=== PATIENT | male | born 1970 | race Caucasian/White ===

== ENCOUNTER → 2020-05-12 | Day surgery (SDC) | payer OTHER ==
[~2020-05-12] MED LIST: ALLOPURINOL 30300 M1 PO; BUPROPION HCL150 M1 PO; CARAFATE 1 GM TA1 G1 PO; FENOFIBRATE145 M1 PO; IBUPROFEN 800800 M1 PO; NEURONTIN 300M300 M2 PO; PERCOCET 5-3251 EACH PO; PRINIVIL20 MG PO
[2020-05-12 06:41] LABS: HEMATOCRIT 42.8 % (42.0-52.0); HEMOGLOBIN 14.4 gm/dL (14.0-18.0)
--- NOTE | 2020-05-12 16:01 | EKG ---
[place] [address] ELECTROCARDIOGRAM REPORT Name: ANA FRIDE Room: [facility]#: [id number] Admission: 05/12/20 Attend Phys: Adis Lucia DPM Discharge: Date of : 70 Date of Service: 05/12/20 0634 Report #: [id number] THIS REPORT FOR: //name// [facility] Test Date: 2020-05-12 Test Time: 06:34:32 Pat Name: ANA FRIED Department: Room: Gender: M Food Aide: JU VAZQUEZ : 1970 Requested By: Adis Lucia Order Number: [id number] Lenore MD: John Hebert Measurements Intervals [place] Rate: 69 P: 22 VA: 154 QRS: 1 QRSD: 115 T: 4 QT: 411 QTc: 441 Interpretive Statements Sinus rhythm Incomplete right bundle branch block No previous ECG available for comparison Electronically Signed On 05-12-2020 16:01:16 STUDENT SERVICES ADVISOR by John Hebert [email or web address] <ELECTRONICALLY SIGNED> By: John Hebert MD, [facility] 05/12/20 1601 0634 0634 John Hebert MD, [facility] /EPI
--- NOTE | 2020-05-13 09:38 | OP ---
[address] [address] OPERATIVE REPORT Name: ANA FRIED Room: [facility]#: [id number] Admission: 05/12/20 Attend Phys: Adis Lucia DPM Discharge: Date of : 70 Report #: [id number] THIS REPORT FOR: cc: FAM - Family physician unknown FAM - Family physician unknown ~ Adis Lucia DPM DATE OF SERVICE: 05/12/2020 PROCEDURE: 1. Debridement of L Achilles non healing wound 2. Preparation of wound bed L LE 3. Application of graft LLE PREOPERATIVE DIAGNOSIS: Nonhealing dehiscence of a surgical site, left Achilles tendon. POSTOPERATIVE DIAGNOSIS: Nonhealing dehiscence of a surgical site, left Achilles tendon performed by. SURGEON: Dr. Adis Lucia. PRODUCTION TOOL ENGINEER: Dr. Usman Stone. FINDINGS: Nonhealing dehiscence surgical site on the posterior aspect of the left Achilles tendon. Pre-debridement measurements were 1.3 x 3.2 x 0.2 cm. Post-debridement measurements were 2.5 x 4 x 0.2 cm. SPECIMENS REMOVED: Soft tissue wound culture sent for micro. ESTIMATED BLOOD LOSS: Approximately 5 mL. COMPLICATIONS: None. HEMOSTASIS: No tourniquet was inflated. INJECTABLES: 20 mL of 1% lidocaine plain and 0.5% Marcaine plain in a 1:1 mixture. MATERIALS USED: The Misonix ultrasonic debrider and Stravix graft 3 x 6 cm. ANESTHESIA PROVIDER: [facility]. DISPOSITION: The patient tolerated the procedure well. The patient left the operating room. Neurovascular status intact noted by capillary refill time less than 3 seconds at operative site. The patient was transferred to recovery [place] [address] OPERATIVE REPORT Name: ANA FRIED Room: [facility]#: [id number] Admission: 05/12/20 Attend Phys: Adis Lucia DPM Discharge: Date of : 70 Report #: [id number] OPERATIVE PROCEDURE IN DETAIL: Under light sedation, the patient was transferred from the preoperative holding area to the operating room table and MAC anesthesia was provided. The patient was then placed in the prone position. At this time, a block in the area of the left Achilles tendon was performed using 10 mL of 1% lidocaine plain and 0.5% Marcaine plain in a 1:1 mix. At this time, the left lower extremity was prepped and draped in normal sterile fashion. Tourniquet was applied prior to this, but never inflated. Next, attention was directed toward the posterior aspect of the left Achilles tendon where a nonhealing dehiscence site was noted. This dehiscence site had been there for over a year. At this time, the [employer] ultrasonic debrider tool was obtained and all nonviable soft tissue was debrided from the site. Once the nonviable tissue was debrided from the dorsal aspect of the site, a hemostat and 15 blade were used to free up the tendon slightly. Once this was performed, the area was again debrided with the ultrasonic debrider tool and a 15 blade to prepare the wound bed for graft application. Once healthy tissue was seen, the area was irrigated with copious amounts of normal saline solution. At this time, the Stravix 3 x 6 cm graft was obtained and placed on the posterior aspect of the Achilles where the open wound was noted. The graft was secured using 3-0 Monocryl suture. Next, the area was dressed with Adaptic, followed by DSD, followed by Kerlix, followed by cast padding, followed by Samuel wrap. Prior to applying the dressings, an additional 10 mL of local anesthetic were injected for postop pain. The patient tolerated the procedure well. The patient left the operating room. Neurovascular status intact noted by capillary refill time less than 3 seconds to the operative site. The patient was transferred to recovery room in stable condition. The patient will follow up with me in clinic next week. The patient is to wear his Cam walker at all times postop. The patient was given 3 days of Percocet for any postoperative pain. The patient was instructed to keep the area clean, dry and intact. <ELECTRONICALLY SIGNED> By: Adis Lucia DPM 05/13/20 0938 0920Adis Lucia DPM /nt
== END | disposition home or self-care (01) ==
LOC: M.SUR 05:31
PROVIDERS: ATTEND Podiatrist
DX: T81.31XA Disruption of external operation (surgical) wound, not elsewhere classified, initial encounter (principal); I10 Essential (primary) hypertension; M10.9 Gout, unspecified; F41.9 Anxiety disorder, unspecified; K21.9 Gastro-esophageal reflux disease without esophagitis; Z79.899 Other long term (current) drug therapy; Z98.890 Other specified postprocedural states; Z96.652 Presence of left artificial knee joint; Y83.8 Other surgical procedures as the cause of abnormal reaction of the patient, or of later complication, without mention of misadventure at the time of the procedure

== ENCOUNTER → 2020-10-20 | Day surgery (SDC) | payer OTHER ==
[~2020-10-20] MED LIST changes: +PERCOCET 7.5-31 EAC1 PO
--- NOTE | ~2020-10-20 | OP ---
[address] [address] OPERATIVE REPORT Name: ANA FRIED Room: [facility]#: [id number] Admission: 10/20/20 Attend Phys: Adis Lucia DPM Discharge: Date of : 70 Report #: [id number] THIS REPORT FOR: cc: ANTONIO - No family physician/PCP ANTONIO - No family physician/PCP ~ DOC #: [id number] Adis Lucia DPM DATE OF SURGERY: 10/20/2020 OPERATIVE PROCEDURE: 1. Debridement of left Achilles tendon wound. 2. Preparation of wound bed. 3. Harvesting of split thickness skin graft from left lower extremity. 4. Application of split thickness skin graft left Achilles tendon wound. PREOPERATIVE DIAGNOSIS: Nonhealing surgical wound, left lower extremity. POSTOPERATIVE DIAGNOSIS: Nonhealing surgical wound, left lower extremity. SURGEON: Aids Lucia DPM RECOVERER: None. FINDINGS: Nonhealing surgical wound on the left Achilles tendon area. Preoperative debridement measurements were 5 cm x 2 cm x 0.1 cm. Post-debridement measurements were 5.2 cm x 2.2 cm x 0.2 cm. SPECIMENS REMOVED: None. ESTIMATED BLOOD LOSS: 5 mL COMPLICATIONS: None. HEMOSTASIS: Thigh tourniquet at 350 mmHg for 30 minutes. INJECTABLES USED: 30 mL of 1% lidocaine plain and 0.5% Marcaine plain in a 1:1 mixture given at the debridement site and the harvesting site. ANESTHESIA TYPE: General. TIMEOUT PERFORMED: Yes. DISPOSITION: The patient tolerated the procedure well. The patient left the operating room. Neurovascular status intact noted by capillary refill time less than three seconds to the operative site. [place] [address] OPERATIVE REPORT Name: ANA FRIED Room: [facility]#: [id number] Admission: 10/20/20 Attend Phys: Adis Lucia DPM Discharge: Date of : 70 Report #: [id number] recovery room in stable condition. DESCRIPTION OF PROCEDURE: Under light sedation, the patient was transferred to the preoperative holding area to the operating room table and was given a general anesthesia. At this time, the patient was planned and was placed in the prone position. Next, the left lower extremity was prepped and draped in a normal sterile fashion. At this time, all intraoperative parties agreed that the proper procedure was going to be debridement of left Achilles tendon wound with preparation of wound bed and harvesting of a split thickness skin graft from the ipsilateral calf and application of this graft to the left Achilles area. Next, the left lower extremity was prepped and draped in normal sterile fashion and the thigh tourniquet was inflated to 350 mmHg. At this time, the [employer] Futuresonix debridement tool was used to debride all nonviable tissue from the wound bed of the left Achilles. At this time, once all nonviable tissue was debrided, attention was directed towards the upper lateral calf area and a measurement was measured out of how large the split thickness skin graft would be required. At this time, an Integra dermatome was obtained and a 0.18 split thickness skin graft was taken from this area. It was then rinsed in saline and mineral oil and pie crusted to inhibit any hematoma formation. Split thickness skin graft was then applied to the left Achilles tendon area where the wound was present. It was then secured to the wound bed with 4-0 Monocryl suture. Next, it was covered by Adaptic and then a wound VAC was applied to this area. Attention was then directed back towards the harvest site where it was covered with Xeroform followed by DSD followed by ABD, followed by Kerlix. The harvest site as well as the graft site were then given 30 mL total of local anesthetic. The thigh tourniquet was taken down at 30 minutes. Next, the entire foot was dressed with DSD cast padding and a posterior splint was applied followed by Samuel wrap. The patient tolerated the procedure well. The patient left the operating room with neurovascular status intact. Normal capillary refill time less than three seconds to the operative site. The patient was transferred to the recovery room in stable condition. POSTOPERATIVE PLAN: The patient was instructed to be nonweightbearing to the operative site. The patient was given pain medication for postoperative pain. The patient will follow up in one week outpatient. Adis Lucia DPM DEMETRIUS/INÉSI By: [id number] /nt
[2020-10-20 08:57] LABS: HEMATOCRIT 42.5 % (42.0-52.0); HEMOGLOBIN 14.7 gm/dL (14.0-18.0); MCH 31.5 pg (26.0-34.0); MCHC 34.5 g/dL (28.0-37.0); MCV 91.4 fL (80.0-100.0); MPV 7.6 fl. (7.2-11.1); RBC 4.65 mil/uL (4.50-6.00); WBC 8.5 thou/uL (4.0-11.0)
[2020-10-20 09:36] LABS: CALCIUM 8.6 mg/dL (8.5-10.1); POTASSIUM 4.4 mmol/L (3.5-5.1)
== END | disposition home or self-care (01) ==
LOC: M.SUR 08:18
PROVIDERS: Anesthesiology; ATTEND Podiatrist
DX: T81.89XA Other complications of procedures, not elsewhere classified, initial encounter (principal); S81.802A Unspecified open wound, left lower leg, initial encounter; M79.672 Pain in left foot; M76.62 Achilles tendinitis, left leg; M77.9 Enthesopathy, unspecified; R60.0 Localized edema; Z98.890 Other specified postprocedural states; Z79.899 Other long term (current) drug therapy; Z20.822 Contact with and (suspected) exposure to COVID-19; Y83.8 Other surgical procedures as the cause of abnormal reaction of the patient, or of later complication, without mention of misadventure at the time of the procedure; X58.XXXA Exposure to other specified factors, initial encounter; Y93.89 Activity, other specified; Y92.89 Other specified places as the place of occurrence of the external cause; Y99.8 Other external cause status